=== PATIENT | female | born 1980 | race Hispanic/Latino ===

== ENCOUNTER 2021-10-02 07:34 | Inpatient (IN) | payer MEDICAID, OTHER, SELFPAY ==
[2021-10-02] MEDS ORDERED: NS w/ Oxytocin 30 units 500 ML ONE (08:34)
[2021-10-02] MEDS ORDERED: hydrALAZINE 20 MG/ML VIAL SLOW IVP PRN ×2 (08:36→14:16)
[2021-10-02] MEDS ORDERED: Ondansetron PF 4 MG/2 ML Vial IVP PRN ×2 (09:00→10:23)
[2021-10-02] MEDS ORDERED: Lactated Ringer's 1,000 ML IV SCH (09:00)
[2021-10-02] MEDS ORDERED: Promethazine HCl 25 MG/ML VIAL IM PRN ×2 (09:00→10:23)
[2021-10-02] MEDS ORDERED: Lidocaine 1% (PF) 30 ML VIAL SC PRN (09:03)
[2021-10-02] MEDS ORDERED: Misoprostol 200 MCG TAB PR PRN (09:03)
[2021-10-02] MEDS ORDERED: Methylergonovine 0.2 MG/ML VIAL IM PRN (09:03)
[2021-10-02] MEDS ORDERED: Ibuprofen 800 MG TAB PO PRN (09:03)
[2021-10-02] MEDS ORDERED: Carboprost 250 MCG/ML AMP IM PRN (09:03)
[2021-10-02] MEDS ORDERED: NS w/ Oxytocin 30 units 500 ML IV SCH (09:15)
[2021-10-02 09:20] LABS: Hemoglobin 11.8 g/dL (12.0-15.5); Mean Corpuscular HGB CONC 33.9 g/dL (32.0-36.0); Mean Corpuscular Hemoglobin 30.9 pg (27.0-33.0); Mean Corpuscular Volume 91.1 fl (81.6-98.3); Mean Platelet Volume 11.6 fl (7.4-10.4); Platelet Count 211 10x3/uL (150-450); RBC Distribution Width 12.9 % (11.5-14.5); Red Blood Cell (RBC) Count 3.82 10x6/uL (3.90-5.03); White Blood Cell (WBC) Count 6.5 10x3/uL (3.5-10.5)
[2021-10-02 09:22] VITALS: BMI 30.1
[2021-10-02 09:53] LABS: Hep B Surf Ag Non-Reactive S/CO (NonReactive); Syphilis Antibody Nonreactive (Nonreactive); Syphilis Antibody Index 0.05 S/CO (<1.00 Non-Reactive)
[2021-10-02] MEDS ORDERED: Fentanyl 2 mcg/Bup 0.1% Cadd 100 ML ONE (09:56)
[2021-10-02 10:05] LABS: HBSAg Index 0.22 S/CO (0-0.99)
[2021-10-02 10:12] LABS: SARS-CoV-2 NAA Rapid Test Not Detected (NotDetected)
[2021-10-02] MEDS ORDERED: Moisturizing Cream (Eucerin) 113 GM JAR TOP PRN (10:23)
[2021-10-02] MEDS ORDERED: diphenhydrAMINE 50 MG/ML VIAL IVP PRN (10:23)
[2021-10-02] MEDS ORDERED: Acetaminophen 325 MG TAB PO PRN (10:23)
[2021-10-02] MEDS ORDERED: ePHEDrine Sulfate 50 MG/10 ML VIAL SLOW IVP PRN (10:23)
[2021-10-02] MEDS ORDERED: Naloxone HCl 0.4 mg/ml Vial IVP PRN ×2 (10:23)
[2021-10-02] MEDS ORDERED: Communication Order-Pharmacy FS SCH (10:30)
[2021-10-02] MEDS ORDERED: Fentanyl 2 mcg/Bupivacaine 0.1% Cassette 100 ML EPIDURAL SCH (10:30)
[2021-10-02] MEDS ORDERED: Lactated Ringer's 500 ML IV PRN (11:47)
[2021-10-02] MEDS ORDERED: Bisacodyl 10 MG SUPP PR PRN (14:16)
[2021-10-02] MEDS ORDERED: Milk Of Magnesia 30 ML UDCUP PO PRN (14:16)
[2021-10-02] MEDS ORDERED: Boostrix 0.5 ML (Tdap) VIAL IM ONE (14:16)
[2021-10-02] MEDS ORDERED: Lanolin Ointment 7 GM TUBE TOP PRN (14:16)
[2021-10-02] MEDS: Ibuprofen 800 MG TAB PO SCH ×2 (15:02→21:39)
[2021-10-02] MEDS: Ferrous Sulfate 325 MG TAB PO SCH (18:10)
[2021-10-02] MEDS: Docusate 100 MG CAP PO SCH (21:39)
[2021-10-03] MEDS: Ibuprofen 800 MG TAB PO SCH ×3 (05:41→21:42)
[2021-10-03] MEDS: Ferrous Sulfate 325 MG TAB PO SCH ×2 (08:19→14:57)
[2021-10-03] MEDS: Docusate 100 MG CAP PO SCH ×2 (09:11→21:43)
[2021-10-03] MEDS: Prenatal Vitamin 1 TAB PO SCH (09:11)
[2021-10-04] MEDS: Ibuprofen 800 MG TAB PO SCH ×3 (06:16→21:11)
[2021-10-04] MEDS: Docusate 100 MG CAP PO SCH ×2 (08:45→21:12)
[2021-10-04] MEDS: Prenatal Vitamin 1 TAB PO SCH (08:45)
[2021-10-04] MEDS: Ferrous Sulfate 325 MG TAB PO SCH ×2 (08:46→17:40)
[2021-10-04 20:55] VITALS: BP 125/64; TEMP 98
== END 2021-10-04 22:18 | disposition home or self-care (01) | DRG 807 ==
LOC: CSHLD/OP 07:34 → CSHLD 08:35 → CSHPP 14:20
PROVIDERS: ADMIT Student in an Organized Health Care Education/Training Program; ATTEND Student in an Organized Health Care Education/Training Program
PROC: 10E0XZZ Delivery of Products of Conception, External Approach (ICD-10-PCS; principal; 2021-10-02)
PROC: 10907ZC Drainage of Amniotic Fluid, Therapeutic from Products of Conception, Via Natural or Artificial Opening (ICD-10-PCS; 2021-10-02)
DX: O24.425 Gestational diabetes mellitus in childbirth, controlled by oral hypoglycemic drugs (principal); Z37.0 Single live birth; Z79.84 Long term (current) use of oral hypoglycemic drugs; Z3A.38 38 weeks gestation of pregnancy; Z20.822 Contact with and (suspected) exposure to COVID-19; O36.63X0 Maternal care for excessive fetal growth, third trimester, not applicable or unspecified; E66.9 Obesity, unspecified; D64.9 Anemia, unspecified; O99.02 Anemia complicating childbirth; O99.214 Obesity complicating childbirth; O77.0 Labor and delivery complicated by meconium in amniotic fluid; O32.8XX0 Maternal care for other malpresentation of fetus, not applicable or unspecified; O69.81X0 Labor and delivery complicated by cord around neck, without compression, not applicable or unspecified
CPT/HCPCS: 36416; 51702; 85027; 86780; 86850; 86900; 86901; 87340; 99285; J2590; U0002